=== PATIENT | male | born 1995 | race African-American/Black ===

== ENCOUNTER 2018-11-11 21:29 | Emergency (ER) | payer OTHER ==
[~2018-11-11] VITALS: Ht 180.3 cm; Wt 100.0 kg
[2018-11-12 00:28] VITALS: BP 137/78
[2018-11-12] MEDS ORDERED: OXYCODONE/APAP 5MG/325MG(BULK FOR ED) 1 TABLET PO ONE (00:30)
--- NOTE | 2018-11-12 01:08 | REPVR ---
EXAM: CT Right Lower Extremity Without Contrast, Knee EXAM DATE/TIME: 11/12/2018 12:14 AM CLINICAL HISTORY: 23 years old, male; Pain; Knee; Right; Additional info: trauma TECHNIQUE: Imaging protocol: CT of the Right lower extremity without contrast was performed. Exam focused on the knee. Coronal and sagittal reformatted images were created and reviewed. 3D reconstructed images were created and reviewed. Radiation optimization: All CT scans at this facility use at least one of these dose optimization techniques: automated exposure control; mA and/or kV adjustment per patient size (includes targeted exams where dose is matched to clinical indication); or iterative reconstruction. COMPARISON: CR Knee, complete RIGHT 11/11/2018 10:21 PM FINDINGS: Bones/joints: There is an acute Schatzker type 2 split depressed fracture of the right lateral tibial plateau, with approximately 3 mm of depression of the articular surface and the fracture line extends through the lateral tibial spine. No significant displacement is noted. No other fractures are seen in the right knee. The patellofemoral alignment is normal. The joint spaces are preserved. No arthropathy is noted. There is a moderate right knee joint effusion. Soft tissues: There is a spur arising from the superior pole of the patella at the insertion of the quadriceps tendon, which is compatible with a quadriceps enthesopathy. There is soft tissue swelling and edema around the right knee. There is a 2.1 cm x 2.5 cm x 3.4 cm small right popliteal cyst. IMPRESSION: 1. Acute Schatzker type 2 split depressed fracture of the right lateral tibial plateau, with approximately 3 mm of depression of the articular surface and the fracture line extends through the lateral tibial spine. 2. Moderate right knee joint effusion. 3. 2.1 cm x 2.5 cm x 3.4 cm small right popliteal cyst. Electronically signed by: Seymour Marcano On 11/12/2018 01:07:53 AM
--- NOTE | 2018-11-12 07:16 | REP ---
Right knee five views: There is a vertical intra-articular fracture of the tibial plateau, proximal tibial metaphysis and extending into the proximal tibial shaft. Mineralization is normal. No calcifications or foreign bodies are identified . Hemarthrosis is suspected. Impression: Proximal tibia fracture as described. Electronically Signed by Andrade Arreguin MD 11/12/2018 07:07 A
--- NOTE | 2018-11-12 07:17 | REP ---
Right tibia-fibula four views: There is an intra-articular fracture of the proximal tibia, identified to better advantage on the knee series. Mineralization and joint spaces are otherwise normal. There are no calcifications or foreign bodies. Impression: Proximal intra-articular tibia fracture. Electronically Signed by Andrade Arreguin MD 11/12/2018 07:08 A
[2018-11-16] MEDS ORDERED: OXYC1TAB23 PO (11:52)
== END 2018-11-12 00:45 | disposition home or self-care (01) ==
LOC: M ED 21:29
DX: S82.191A Other fracture of upper end of right tibia, initial encounter for closed fracture (principal); W50.0XXA Accidental hit or strike by another person, initial encounter; Y92.321 Football field as the place of occurrence of the external cause; Y93.61 Activity, american tackle football; F17.210 Nicotine dependence, cigarettes, uncomplicated

== ENCOUNTER 2018-11-19 08:11 | Inpatient (IN) | payer OTHER ==
[~2018-11-19] VITALS: Ht 180.3 cm; Wt 99.8 kg
[~2018-11-19 08:11] MED LIST: LR 1,000 ML IV ONE; OXYC1TAB23 PO; ceFAZolin SOD 2 GM in IV 1 EA IV ONE
[2018-11-19] MEDS ORDERED: dexameTHASONE 4 MG/ML 1ML VIAL (J1100) ONE (08:12)
[2018-11-19] MEDS ORDERED: dexameTHASONE 10 MG/1 ML VIAL PRES.FREE (J1100) ONE (08:12)
[2018-11-19] MEDS ORDERED: LIDOCAINE 1% MDV 20ML VIAL ONE ×2 (08:12)
[2018-11-19] MEDS ORDERED: MIDAZOLAM INJ 2 MG/2 ML VIAL (J2250) As Ordered ONE ×2 (08:40→09:57)
[2018-11-19] MEDS ORDERED: fentaNYL 100 MCG/2 ML INJECTION (J3010) As Ordered ONE ×5 (08:40→12:42)
[2018-11-19] MEDS ORDERED: BUPIVACAINE HCL 0.25% 10 ML VIAL As Ordered ONE (08:43)
[2018-11-19] MEDS ORDERED: BUPIVACAINE HCL 0.25% 30 ML VIAL As Ordered ONE (08:43)
[2018-11-19] MEDS ORDERED: ceFAZolin 1GM INJ (J0690 PER 500MG) As Ordered ONE (09:26)
[2018-11-19] MEDS ORDERED: GLYCOPYRROLATE INJ 0.2 MG/ML 2 ML VIAL As Ordered ONE (09:52)
[2018-11-19] MEDS ORDERED: propofoL 200 MG/20 ML VIAL As Ordered ONE (09:57)
[2018-11-19] MEDS ORDERED: dexameTHASONE 4 MG/ML 1ML VIAL (J1100) As Ordered ONE (09:57)
[2018-11-19] MEDS ORDERED: ONDANSETRON 4MG/2ML VIAL (J2405) As Ordered ONE (09:57)
[2018-11-19] MEDS ORDERED: KETAMINE HCL 200 MG/20 ML VIAL As Ordered ONE (09:57)
[2018-11-19] MEDS ORDERED: LIDOCAINE 2% INJ 100 MG/5 ML SDV (FOR ANES.) As Ordered ONE (09:57)
[2018-11-19] MEDS ORDERED: ACETAMINOPHEN 1000MG 100ML IV BTL (OFIRMEV) (J0131 PER 10MG) As Ordered ONE (10:44)
[2018-11-19] MEDS ORDERED: HYDROmorphone HCL 2 MG/ML 1ML VIAL (J1170) As Ordered ONE (11:41)
[2018-11-19] MEDS ORDERED: oxyCODONE 5MG TAB As Ordered ONE (12:29)
[2018-11-19] MEDS ORDERED: HYDROMORPHONE HCL 0.5 MG/ 0.5 ML SYRINGE (J1170 PER 1) As Ordered ONE (12:42)
[2018-11-19] MEDS: HYDROMORPHONE HCL 0.5 MG/ 0.5 ML SYRINGE (J1170 PER 1) IV PRN ×2 (12:44→12:49)
[2018-11-19] MEDS ORDERED: KETOROLAC 30 MG/ML VIAL (J1885) As Ordered ONE (12:48)
[2018-11-19] MEDS: fentaNYL 100 MCG/2 ML INJECTION (J3010) IV PRN ×4 (12:50→13:05)
[2018-11-19] MEDS ORDERED: oxyCODONE 5MG TAB PO PRN ×3 (13:15)
[2018-11-19] MEDS ORDERED: LR 1,000 ML IV SCH (13:15)
[2018-11-19] MEDS ORDERED: KETOROLAC 30 MG/ML VIAL (J1885) IV PRN (13:15)
[2018-11-19] MEDS ORDERED: ONDANSETRON 4MG/2ML VIAL (J2405) IV PRN (13:15)
[2018-11-19] MEDS ORDERED: MORPHINE 4 MG/ML 1ML VIAL/SYRINGE (J2270) IV PRN (13:15)
[2018-11-19] MEDS ORDERED: ACETAMINOPHEN 500 MG TAB PO PRN (13:15)
--- NOTE | 2018-11-19 13:50 | RO ---
DATE OF PROCEDURE: 11/19/2018 PREPROCEDURE DIAGNOSIS: Right lateral tibial plateau fracture. POSTPROCEDURE DIAGNOSIS: Right lateral tibial plateau fracture. PROCEDURE:ORIF R Lateral tibial plateau SURGEON: Dr. Aristides Leal NET MENDER: ANESTHESIA: The patient was under general. He also had a preoperative peripheral nerve block. INDICATION: This is a pleasant 23-year-old male who suffered a slight depression of his right lateral tibial plateau while playing at sports. We discussed that the best chance of him to have a best functioning joint going forward is to restore his joint anatomy. We discussed the main risk and benefits discussed with him from the surgery including but not limited to nerve damage, malunion, nonunion, hardware failure and infection and blood loss. Patient expressed understanding and agreed with this plan. FINDINGS: We did not discover a lateral meniscus tear after doing an arthrotomy but there was a significant split depression of about 1-1.5 cm in the anterolateral aspect of the proximal tibia. TOURNIQUET TIME: 109 minutes. COMPLICATIONS: None. ANTIBIOTICS: 2 grams Kefzol. DRAINS: None. DESCRIPTION OF PROCEDURE: The patient was brought back to the operating room, placed supine on the flat Ran. The patient underwent general anesthesia at which point his right leg was prepped and draped in the usual manner. At which point the time-out was had confirming site, surgery, and patient. Once all in agreement, we proceeded with a curvilinear incision from the lateral distal epicondyle of the femur along the tibial crest overlying Gerdy's tubercle. This was done sharply with the knife. Subcutaneous tissue was incised using Bovie to expose the iliotibial (IT) band fascia in the anterior compartments at which point, we used a knife to enter the IT band overlying Gerdy's tubercle along the anterior compartment as well about 0.5 cm off the tibial crest. Then we used a Bovie to remove the anterior muscle fibers from the compartment off the anterolateral tibia exposing the fracture site and proximally exposing the joint capsule. Once this was adequately liberated, we made our arthrotomy approximately 4 cm in order to gain visualization into the joint at which point, we looked at the lateral meniscus and did not appear to have a tear but we could visualize the step-off joint and palpate it with an freer. At this point, our attention was turned to the fracture. The fracture along the shaft was adequately reduced, therefore, we used an osteotomy window to open the intramedullary canal using a bone tamp that was curved. We elevated the depressed portion of the joint under guidance of C-arm. We then found the 6- hole proximal tibial locking plate and aligned it over the fracture. To hold the depressed segment in place we used K-wires while we were fixing our plate. At which point, we placed three screws distally and used the larger periarticular clamp to restore the intercondylar width and insert four long screws proximally. Then through the kick stand hole, we injected 5 mL of Norian to help maintain our reduction and inserted the calcar locking screw. Then it appeared that the plate, while in good position was about 0.5 cm low to adequately hold up the depressed segment. We inserted one 3/5 screw directly under the segment to provide scaffolding support to the depressed segment to keep it in place. We were happy with reduction on C-arm x-ray at this point. Therefore, we irrigated the joint and found no cement in the joint itself. Once again, felt the depressed segment at which point now was within a millimeter of the cowlitz articular cartilage. We were happy with this reduction and we closed the joint with 0 Vicryl and ran the fascia of the anterior compartment and IT band with 0 Vicryl as well. Then irrigated once again and closed with #2-0 Vicryl and estevan for the skin. We then dressed the wound with Adaptic, gauze, ABD, Kerlix and afshin. He was placed in a Javi knee brace and will followup in the office in 2 weeks for a clinical check of the wound. POSTOPERATIVE PLAN: The patient will be non-weightbearing with crutches. We will see him in the office in 2 weeks for a clinical wound check and then we will see him again at 4 weeks after that so it is 6 weeks postop at which point, we may progress his weightbearing. CORINA
[2018-11-19 15:10] VITALS: BP 152/85
--- NOTE | 2018-11-19 19:37 | REP ---
C-ARM VIEWS RIGHT LOWER LEG: Four C-ARM views right lower leg are performed. There is placement of a metallic plate and multiple screws in the proximal tibia. The osseous structures are well aligned. 2 minutes 23 seconds of fluoroscopy time was utilized. Electronically Signed by Andrade Goldstein MD 11/20/2018 11:46 P
--- NOTE | 2018-11-23 00:08 | DSES ---
DATE OF ADMISSION: 11/19/2018 DATE OF DISCHARGE: 11/19/2018 DISCHARGE DIAGNOSIS: Right knee fracture, status post open reduction internal fixation (ORIF) right lateral tibial plateau. HISTORY: This is a 23-year-old male who was playing sports and injured his right knee. He was appreciated to have a depressed right lateral tibial plateau fracture. He was consented for a right lateral tibial ORIF. HOSPITAL COURSE: On the day of admission, the patient was doing well. He underwent ORIF of his right lateral tibial plateau fracture. This was without complications. During his stay, his pain was controlled and he was up with physical therapy. On the day of discharge, the patient was doing well. He was nonweightbearing to his right lower extremity. He will resume preoperative medications and diet. He will use oral medications for pain control. He will followup in the office in 2 weeks for wound check and staple removal. For further details, please see the medical record.
== END 2018-11-19 15:20 | disposition home or self-care (01) | DRG 494 ==
LOC: M SDC 08:11 → M OR 08:12 → UNDOADMIN 08:12 → M RR INP 08:12 → UNDODISIN 15:20 → UNDOADMIN 16:34 → M OR 16:34
PROVIDERS: ADMIT Orthopaedic Surgery Hand Surgery; ATTEND Orthopaedic Surgery Hand Surgery
PROC: 0QBG0ZZ Excision of Right Tibia, Open Approach (ICD-10-PCS; 2018-11-19)
PROC: 0QSG04Z Reposition Right Tibia with Internal Fixation Device, Open Approach (ICD-10-PCS; principal; 2018-11-19 09:15)
DX: S82.251A Displaced comminuted fracture of shaft of right tibia, initial encounter for closed fracture (principal); W18.30XA Fall on same level, unspecified, initial encounter; Y92.009 Unspecified place in unspecified non-institutional (private) residence as the place of occurrence of the external cause